=== PATIENT | male | born 1960 ===

== ENCOUNTER 2018-07-11 12:19 | Outpatient (CLI) | payer SELFPAY | END 2018-07-11 12:20 | disposition EMS.NT | LOC: EMS 12:19 | PROVIDERS: ATTEND Surgery | DX: S71.111A Laceration without foreign body, right thigh, initial encounter (principal); W29.3XXA Contact with powered garden and outdoor hand tools and machinery, initial encounter; Y93.H2 Activity, gardening and landscaping; Y92.007 Garden or yard of unspecified non-institutional (private) residence as the place of occurrence of the external cause ==